=== PATIENT | male | born 1955 | race Caucasian/White ===

== ENCOUNTER → 2016-09-20 | Outpatient (CLI) | payer OTHER, MEDICARE ==
[~2016-09-20] VITALS: Ht 190.5 cm; Wt 250.2 kg
[~2016-09-20] MED LIST: ADVAIR 250/501 DISK IH; ALLOPURINOL100 MG PO; BENICAR40 MG PO; BUMETANIDE1 MG PO; BUSPAR10 MG PO; CARVEDILOL25 MG PO; COMBIVENT RESPIM4 GM AEROSOL; ERGOCALCIF50000 UNIT PO; FLOVENT DISKUS1 DIS2 NS; FUROSEMIDE40 MG PO; HUMALOG100 UNIT/1 SQ; HUMULIN R500 UNITS/ SC; HYDROCHLOROTHIA25 MG PO; LO-DOSE ASPIRIN81 M2 PO; SERTRALINE HCL100 MG PO; SIMVASTATIN20 MG PO; [UNRECOGNIZED DRUG - REMARK]
[2016-09-20 14:41] LABS: ANION GAP 10 MEQ/L (2-14); CHLORIDE 98 MEQ/L (99-109); POTASSIUM 4.1 MEQ/L (3.7-5.4); SAMPLE HEMOLYSIS CHECK 0; SAMPLE ICTERIC CHECK 0; SAMPLE LIPEMIA CHECK 0; SODIUM 137 MEQ/L (136-147)
[2016-09-20 14:46] LABS: GFR ESTIMATE (CALCULATED) > 59 mL/min/; GLUCOSE 370 mg/dL (70-99); UREA NITROGEN (BUN) 27 mg/dL (9-23)
[2016-09-20 15:20] LABS: POINT-OF-CARE METER ID UU13113694
[2016-09-20 16:12] LABS: POINT-OF-CARE METER ID UU13113819
[2016-09-20 17:40] LABS: POINT-OF-CARE METER ID UU13113819
== END | disposition home or self-care (01) ==
LOC: AMB 13:35
PROVIDERS: Internal Medicine Gastroenterology
PROC: 0DBE8ZZ Excision of Large Intestine, Via Natural or Artificial Opening Endoscopic (ICD-10-PCS; principal; 2016-09-20)
DX: Z09 Encounter for follow-up examination after completed treatment for conditions other than malignant neoplasm (principal); Z86.010 Personal history of colon polyps; D12.2 Benign neoplasm of ascending colon; D12.0 Benign neoplasm of cecum; D12.3 Benign neoplasm of transverse colon; D12.5 Benign neoplasm of sigmoid colon; K62.1 Rectal polyp; I10 Essential (primary) hypertension; M10.9 Gout, unspecified; E11.9 Type 2 diabetes mellitus without complications; J44.9 Chronic obstructive pulmonary disease, unspecified; Z99.81 Dependence on supplemental oxygen
CPT/HCPCS: 80048; 82948; 88305; B4087; J1815